=== PATIENT | male | born 1990 | race Caucasian/White ===

== ENCOUNTER → 2018-01-24 | Emergency (ER) | payer OTHER ==
[~2018-01-24] VITALS: Ht 188 cm; Wt 108.9 kg
[~2018-01-24] MED LIST: TRAMADOL HCL50 MG; [UNRECOGNIZED DRUG - OTHER]
== END | disposition left against medical advice (07) ==
LOC: ER 14:51
DX: R00.2 Palpitations (principal); F06.4 Anxiety disorder due to known physiological condition